=== PATIENT | male | born 1985 | race Two or more races ===

== ENCOUNTER → 2023-04-19 | Emergency (ER) | payer BC ==
[~2023-04-19] VITALS: Ht 162.6 cm; Wt 82.6 kg
== END | disposition home or self-care (01) ==
LOC: ER 21:35
DX: S01.82XA Laceration with foreign body of other part of head, initial encounter (principal); V00.831A Fall from motorized mobility scooter, initial encounter; Y93.I9 Activity, other involving external motion; Y92.413 State road as the place of occurrence of the external cause